=== PATIENT | female | born 1940 | race Caucasian/White ===

== ENCOUNTER 2016-11-14 10:55 | Outpatient (CLI) | payer MEDICARE, OTHER | END 2016-11-14 10:56 | disposition home or self-care (01) | DX: R35.0 Frequency of micturition (principal) ==

== ENCOUNTER 2019-06-17 11:06 | Outpatient (CLI) | payer MEDICARE, OTHER ==
[2019-06-17 17:21] LABS: BASOPHILS # (AUTO) 0.1 10^3/uL (0.0-0.1); BASOPHILS % (AUTO) 0.9 %; EOSINOPHILS # (AUTO) 0.1 10^3/uL (0.0-0.7); HGB - HEMOGLOBIN 13.3 g/dL (12.0-16.0); LYMPHOCYTES # (AUTO) 0.9 10^3/uL (1.5-3.5); LYMPHOCYTES % (AUTO) 15.8 %; MEAN CORPUSCULAR HGB CONC 32.6 g/dL (32.0-36.0); MEAN CORPUSCULAR VOLUME 95.1 fL (81.0-99.0); MEAN PLATELET VOLUME 10.8 fL (7.9-10.8); MONOCYTES # (AUTO) 0.4 10^3/uL (0.0-1.0); MONOCYTES % (AUTO) 7.3 %; NEUTROPHILS # (AUTO) 4.1 10^3/uL (1.5-6.6); NEUTROPHILS % (AUTO) 73.6 %; PLT - PLATELET COUNT 202 10^3/uL (130-450); RED BLOOD COUNT 4.29 10^6/uL (4.20-5.40); RED CELL DISTRIBUTION WIDTH 12.8 % (12.0-15.0); WHITE BLOOD COUNT 5.6 x10^3/uL (4.8-10.8)
[2019-06-17 17:58] LABS: ALBUMIN 4.4 g/dL (3.2-5.5); ALBUMIN/GLOBULIN RATIO 1.5 (1.0-2.2); BILIRUBIN,TOTAL 0.8 mg/dL (0.2-1.0); CALCIUM 9.6 mg/dL (8.5-10.3); CREATININE 0.7 mg/dL (0.4-1.0); TOTAL PROTEIN 7.4 g/dL (6.7-8.2)
== END 2019-06-17 11:07 | disposition home or self-care (01) ==
LOC: LAB.S 11:06
PROVIDERS: ATTEND Physician Assistant Medical
DX: Z51.81 Encounter for therapeutic drug level monitoring (principal); Z79.899 Other long term (current) drug therapy
CPT/HCPCS: 36415; 80053; 85025

== ENCOUNTER 2020-09-02 08:38 | Outpatient (CLI) | payer MEDICARE ==
[2020-09-02 14:46] LABS: BASOPHILS % (AUTO) 0.7 %; EOSINOPHILS # (AUTO) 0.1 10^3/uL (0.0-0.7); EOSINOPHILS % (AUTO) 1.3 %; HGB - HEMOGLOBIN 13.4 g/dL (12.0-16.0); LYMPHOCYTES # (AUTO) 0.7 10^3/uL (1.5-3.5); MEAN CORPUSCULAR HEMOGLOBIN 30.7 pg (27.0-31.0); MEAN CORPUSCULAR HGB CONC 32.5 g/dL (32.0-36.0); MEAN CORPUSCULAR VOLUME 94.5 fL (81.0-99.0); MEAN PLATELET VOLUME 11.3 fL (7.9-10.8); MONOCYTES # (AUTO) 0.3 10^3/uL (0.0-1.0); MONOCYTES % (AUTO) 6.8 %; NEUTROPHILS # (AUTO) 3.5 10^3/uL (1.5-6.6); PLT - PLATELET COUNT 187 10^3/uL (130-450); RED BLOOD COUNT 4.36 10^6/uL (4.20-5.40); RED CELL DISTRIBUTION WIDTH 12.5 % (12.0-15.0); WHITE BLOOD COUNT 4.6 x10^3/uL (4.8-10.8)
[2020-09-02 15:04] LABS: ALBUMIN 4.1 g/dL (3.2-5.5); ALBUMIN/GLOBULIN RATIO 1.3 (1.0-2.2); ALKALINE PHOSPHATASE 74 IU/L (42-121); ALT ALANINE AMINOTRANSFERASE 15 IU/L (10-60); AST ASPARTATE AMINOTRANSFERASE 22 IU/L (10-42); BILIRUBIN,TOTAL 0.8 mg/dL (0.2-1.0); BUN - BLOOD UREA NITROGEN 24 mg/dL (6-20); CALCIUM 9.3 mg/dL (8.5-10.3); CARBON DIOXIDE - CO2 25 mmol/L (21-32); CHLORIDE 107 mmol/L (101-111); CHOL/HDL RATIO 2.9 (<4.4); CHOLESTEROL 167 mg/dL; CREATININE 0.9 mg/dL (0.4-1.0); GLUCOSE 95 mg/dL (70-100); HDL CHOLESTEROL 57 mg/dL; LDL CHOLESTEROL,CALCULATED 100 mg/dL; LDL/HDL RATIO 1.8 (<4.4); TOTAL PROTEIN 7.2 g/dL (6.7-8.2); VLDL CHOLESTEROL 10 mg/dL
== END 2020-09-02 08:39 | disposition home or self-care (01) ==
LOC: LAB.S 08:38
PROVIDERS: ATTEND Physician Assistant
DX: Z00.00 Encounter for general adult medical examination without abnormal findings (principal); G60.9 Hereditary and idiopathic neuropathy, unspecified; Z51.81 Encounter for therapeutic drug level monitoring; E66.3 Overweight
CPT/HCPCS: 36415; 80053; 80061; 82306; 83721; 84443; 85025

== ENCOUNTER 2021-11-26 11:06 | Outpatient (CLI) | payer MEDICARE, OTHER ==
[2021-11-26 14:54] LABS: BASOPHILS % (AUTO) 0.6 %; EOSINOPHILS # (AUTO) 0.2 10^3/uL (0.0-0.7); EOSINOPHILS % (AUTO) 3.8 %; HCT - HEMATOCRIT 41.1 % (37.0-47.0); HGB - HEMOGLOBIN 13.6 g/dL (12.0-16.0); LYMPHOCYTES # (AUTO) 0.7 10^3/uL (1.5-3.5); LYMPHOCYTES % (AUTO) 13.3 %; MEAN CORPUSCULAR HEMOGLOBIN 30.3 pg (27.0-31.0); MEAN CORPUSCULAR HGB CONC 33.1 g/dL (32.0-36.0); MEAN CORPUSCULAR VOLUME 91.5 fL (81.0-99.0); MEAN PLATELET VOLUME 11.4 fL (7.9-10.8); MONOCYTES # (AUTO) 0.4 10^3/uL (0.0-1.0); NEUTROPHILS % (AUTO) 75.1 %; PLT - PLATELET COUNT 197 10^3/uL (130-450); RED BLOOD COUNT 4.49 10^6/uL (4.20-5.40); RED CELL DISTRIBUTION WIDTH 12.9 % (12.0-15.0); WHITE BLOOD COUNT 5.3 x10^3/uL (4.8-10.8)
[2021-11-26 15:32] LABS: ALBUMIN 4.3 g/dL (3.2-5.5); ALBUMIN/GLOBULIN RATIO 1.3 (1.0-2.2); ALKALINE PHOSPHATASE 76 IU/L (42-121); ALT ALANINE AMINOTRANSFERASE 14 IU/L (10-60); AST ASPARTATE AMINOTRANSFERASE 25 IU/L (10-42); BILIRUBIN,TOTAL 0.8 mg/dL (0.2-1.0); BUN - BLOOD UREA NITROGEN 26 mg/dL (6-20); CALCIUM 9.7 mg/dL (8.5-10.3); CARBON DIOXIDE - CO2 28 mmol/L (21-32); CHLORIDE 106 mmol/L (101-111); CHOL/HDL RATIO 3.1 (<4.4); CHOLESTEROL 168 mg/dL; GFR - MDRD 53 (>89); GLUCOSE 96 mg/dL (70-100); HDL CHOLESTEROL 54 mg/dL; LDL CHOLESTEROL,CALCULATED 101 mg/dL; LDL/HDL RATIO 1.9 (<4.4); POTASSIUM 4.2 mmol/L (3.5-5.0); SODIUM 141 mmol/L (135-145); TOTAL PROTEIN 7.5 g/dL (6.7-8.2); TRIGLYCERIDES 65 mg/dL; VLDL CHOLESTEROL 13 mg/dL
[2021-11-26 15:36] LABS: THYROID STIMULATING HORMONE 1.8 uIU/mL (0.34-5.60)
== END 2021-11-26 11:07 | disposition home or self-care (01) ==
LOC: LAB.S 11:06
PROVIDERS: ATTEND Registered Nurse
DX: Z51.81 Encounter for therapeutic drug level monitoring (principal); R03.0 Elevated blood-pressure reading, without diagnosis of hypertension; Z13.220 Encounter for screening for lipoid disorders; Z79.899 Other long term (current) drug therapy
CPT/HCPCS: 36415; 80053; 80061; 83721; 84443; 85025

== ENCOUNTER 2022-09-14 14:55 | Outpatient (CLI) | payer MEDICARE, OTHER ==
--- NOTE | 2022-09-14 17:02 | DEXA Report ---
PROCEDURE: Dexa Spine and/or Hip INDICATIONS: POST MENOPAUSAL TECHNIQUE: Dual energy x-ray absorptiometry (DXA) was performed on a Trutap System. Regions measur ed are the AP Spine, femoral neck, and if needed forearm. COMPARISON: None. FINDINGS: Lumbar Spine: Bone Mineral Density 1.314 g/cm/cm,T score 1.1, osteopenia Left Femoral Neck: Bone Mineral Density 0.763 g/cm/cm, T score -2.0, osteopenia Left total Hip: Bone Mineral Density 0.859 g/cm/cm,T score -1.2, osteopenia (T score greater or equal to -1.0: NORMAL) (T score from -1.1 to -2.4: OSTEOPENIA) (T score less than or equal to -2.5 to: OSTEOPOROSIS) IMPRESSION: Osteopenia Reviewed by: Moses Vogt on 09/14/2022 4:00 PM AKST Approved by: Moses Vogt on 09/14/2022 4:00 PM [facility] Station ID: [id number]
== END 2022-09-14 14:56 | disposition home or self-care (01) ==
LOC: DI 14:55
PROVIDERS: ATTEND Registered Nurse
DX: Z78.0 Asymptomatic menopausal state (principal); M85.89 Other specified disorders of bone density and structure, multiple sites

== ENCOUNTER 2023-02-01 08:25 | Outpatient (CLI) | payer MEDICARE, OTHER ==
[2023-02-01 15:05] LABS: BASOPHILS % (AUTO) 0.9 %; EOSINOPHILS # (AUTO) 0.1 10^3/uL (0.0-0.7); EOSINOPHILS % (AUTO) 1.8 %; HCT - HEMATOCRIT 42.2 % (37.0-47.0); HGB - HEMOGLOBIN 13.9 g/dL (12.0-16.0); LYMPHOCYTES # (AUTO) 0.8 10^3/uL (1.5-3.5); LYMPHOCYTES % (AUTO) 18.7 %; MEAN CORPUSCULAR HEMOGLOBIN 30.9 pg (27.0-31.0); MEAN CORPUSCULAR HGB CONC 32.9 g/dL (32.0-36.0); MEAN CORPUSCULAR VOLUME 93.8 fL (81.0-99.0); MONOCYTES # (AUTO) 0.3 10^3/uL (0.0-1.0); MONOCYTES % (AUTO) 7.2 %; NEUTROPHILS # (AUTO) 3.2 10^3/uL (1.5-6.6); NEUTROPHILS % (AUTO) 71.2 %; PLT - PLATELET COUNT 200 10^3/uL (130-450); RED CELL DISTRIBUTION WIDTH 12.8 % (12.0-15.0); WHITE BLOOD COUNT 4.4 x10^3/uL (4.8-10.8)
[2023-02-01 15:14] LABS: THYROID STIMULATING HORMONE 2.56 uIU/mL (0.34-5.60)
[2023-02-01 15:27] LABS: ALBUMIN 4.3 g/dL (3.2-5.5); ALBUMIN/GLOBULIN RATIO 1.4 (1.0-2.2); ALKALINE PHOSPHATASE 75 IU/L (42-121); ALT ALANINE AMINOTRANSFERASE 10 IU/L (10-60); AST ASPARTATE AMINOTRANSFERASE 20 IU/L (10-42); BILIRUBIN,TOTAL 0.6 mg/dL (0.2-1.0); BUN - BLOOD UREA NITROGEN 27 mg/dL (6-20); CALCIUM 9.8 mg/dL (8.5-10.3); CARBON DIOXIDE - CO2 30 mmol/L (21-32); CHLORIDE 106 mmol/L (101-111); CHOL/HDL RATIO 3.1 (<4.4); CHOLESTEROL 158 mg/dL; GFR - MDRD 53 (>89); GLUCOSE 89 mg/dL (74-104); HDL CHOLESTEROL 51 mg/dL; LDL CHOLESTEROL,CALCULATED 89 mg/dL; LDL/HDL RATIO 1.7 (<4.4); POTASSIUM 4.3 mmol/L (3.5-4.5); SODIUM 139 mmol/L (135-145); TOTAL PROTEIN 7.3 g/dL (6.4-8.9); TRIGLYCERIDES 90 mg/dL (48-352); VLDL CHOLESTEROL 18 mg/dL
== END 2023-02-01 08:26 | disposition home or self-care (01) ==
LOC: LAB.S 08:25
PROVIDERS: ATTEND Registered Nurse
DX: Z79.899 Other long term (current) drug therapy (principal); Z13.220 Encounter for screening for lipoid disorders; Z13.29 Encounter for screening for other suspected endocrine disorder
CPT/HCPCS: 36415; 80053; 80061; 83721; 84443; 85025

== ENCOUNTER 2023-12-15 07:00 | Outpatient (CLI) | payer MEDICARE, OTHER | END 2023-12-15 23:59 | disposition home or self-care (01) | LOC: LAB.S 07:00 | PROVIDERS: ATTEND Physician Assistant Medical | DX: R31.9 Hematuria, unspecified (principal); R30.0 Dysuria | CPT/HCPCS: 87077; 87086; 87181 ==